=== PATIENT | female | born 1985 | race Caucasian/White ===

== ENCOUNTER 2019-12-22 17:48 | Emergency (ER) | payer OTHER ==
[~2019-12-22] VITALS: Ht 157.5 cm; Wt 62.1 kg
[2019-12-22 19:05] LABS: INFLUENZA A ANTIGEN Negative (Negative); INFLUENZA B ANTIGEN Negative (Negative)
[2019-12-22 20:19] VITALS: BP 110/64
== END 2019-12-22 21:05 | disposition home or self-care (01) ==
LOC: M.ERS 17:48
PROVIDERS: Nurse Practitioner Family
DX: R05 Cough (principal); Z85.3 Personal history of malignant neoplasm of breast